=== PATIENT | male | born 1960 | race Two or more races ===

== ENCOUNTER → 2016-10-03 | Outpatient (CLI) | payer BC, OTHER ==
[2016-10-03 08:41] LABS: ALANINE AMINOTRANSFERASE 38 U/L (21-72); ALKALINE PHOSPHATASE 47 U/L (38-126); ANION GAP 10 (5-19); ASPARTATE AMINO TRANSFERASE 27 U/L (17-59); BILIRUBIN,DIRECT 0.3 mg/dL (0.0-0.4); BILIRUBIN,TOTAL 0.7 mg/dL (0.2-1.3); BLOOD UREA NITROGEN 21 mg/dL (7-20); CALCIUM 9.4 mg/dL (8.4-10.2); CARBON DIOXIDE 27 mmol/L (22-30); CHLORIDE 103 mmol/L (98-107); CHOLESTEROL 159.37 mg/dL (0-200); Direct HDL 38 mg/dL (>40); GLUCOSE 92 mg/dL (75-110); POTASSIUM 4.6 mmol/L (3.6-5.0); SODIUM 139.9 mmol/L (137-145); TOTAL PROTEIN 6.3 g/dL (6.3-8.2); TRIGLYCERIDES 121 mg/dL (<150)
[2016-10-03 08:52] LABS: DIRECT LDL 98 mg/dL (<100)
== END ==
LOC: OD 07:05
PROVIDERS: ATTEND Internal Medicine Cardiovascular Disease
DX: E78.2 Mixed hyperlipidemia (principal); I10 Essential (primary) hypertension
CPT/HCPCS: 36415; 80048; 80061; 80076

== ENCOUNTER → 2017-06-20 | Outpatient (CLI) | payer BC ==
[2017-06-20 09:08] LABS: ALANINE AMINOTRANSFERASE 49 U/L (21-72); ALKALINE PHOSPHATASE 45 U/L (38-126); ASPARTATE AMINO TRANSFERASE 29 U/L (17-59); BILIRUBIN,DIRECT 0.2 mg/dL (0.0-0.4); BILIRUBIN,TOTAL 0.6 mg/dL (0.2-1.3); CHOLESTEROL 200.35 mg/dL (0-200); TOTAL PROTEIN 6.3 g/dL (6.3-8.2); TRIGLYCERIDES 280 mg/dL (<150)
[2017-06-20 09:19] LABS: DIRECT LDL 116 mg/dL (<100)
== END ==
LOC: OD 07:43
PROVIDERS: ATTEND Nurse Practitioner Family
DX: E78.2 Mixed hyperlipidemia (principal); Z79.899 Other long term (current) drug therapy
CPT/HCPCS: 36415; 80061; 80076; 84403

== ENCOUNTER 2017-10-19 18:18 | Emergency (ER) | payer BC ==
[2017-10-19] MEDS ORDERED: NORMAL SALINE 1000 ML 1,000 ML IV ONE (18:38)
[2017-10-19] MEDS ORDERED: ACETAMINOPHEN 325 MG TABLET PO ONE (18:38)
[2017-10-19] MEDS ORDERED: ONDANSETRON 4 MG TAB.RAPDIS PO ONE (18:39)
--- NOTE | 2017-10-19 18:41 | ER Document Report ---
ED Medical Screen (RME) - General Chief Complaint: Fever Stated Complaint: PAIN,FEVER Time Seen by Provider: 10/19/17 18:26 Notes: RAPID MEDICAL EVALUATION DISCLOSURE I have seen this patient as part of a Rapid Medical Evaluation and, if applicable, placed any initially appropriate orders. The patient will be seen and fully evaluated, including a full history and physical exam, by a provider ( in Main ED or Fast Track) when a room becomes available. 57-year-old male here with complaints of generalized weakness fevers chills nausea palpitations and right inguinal and right maxillary pain. He went to the [facility] earlier today and underwent an ultrasound for his right inguinal pain but has not yet heard the results back. He has a follow-up appointment tomorrow however they decided to come today because he did not feel he could wait until tomorrow. He does not have any cough congestion runny nose vomiting diarrhea dysuria frequency. He is a poor historian and therefore there was some difficulty obtaining history. EXAM CTAB Moderately tachycardic TRAVEL OUTSIDE OF THE [place] IN LAST 30 DAYS: No - Related Data Allergies/Adverse Reactions: No Known Allergies Allergy (Unverified 09/20/11 22:05) Past Medical History - Social History Chew tobacco use (# tins/day): No Frequency of alcohol use: Rare Drug Abuse: None - Past Medical History Cardiac Medical History: Reports: Hx Hypercholesterolemia, Hx Hypertension Renal/ Medical History: Denies: Hx Peritoneal Dialysis Musculoskeltal Medical History: Reports Hx Arthritis Past Surgical History: Reports: Hx Tonsillectomy - Immunizations Hx Diphtheria, Pertussis, Tetanus Vaccination: Yes Physical Exam - Vital signs Vitals: Temp Pulse Resp BP Pulse Ox 100.2 F 132 H 18 152/82 H 95 10/19/17 18:24 10/19/17 18:24 10/19/17 18:24 10/19/17 18:24 10/19/17 18:24 Course - Vital Signs Vital signs: Temp Pulse Resp BP Pulse Ox 100.2 F 132 H 18 152/82 H 95 10/19/17 18:24 10/19/17 18:24 10/19/17 18:24 10/19/17 18:24 10/19/17 18:24 Doctor's Discharge - Discharge Referrals: HIRAL SMILEY MD [Primary Care Provider] - Follow up as needed
[2017-10-19 19:23] LABS: ABSOLUTE LYMPHOCYTES (AUTO) 0.9 10^3/uL (0.5-4.7); ABSOLUTE MONOCYTES (AUTO) 0.5 10^3/uL (0.1-1.4); ABSOLUTE NEUT (AUTO) 8.3 10^3/uL (1.7-8.2); BASOPHILS % (AUTO) 0.4 % (0-2); EOSINOPHILS % (AUTO) 0.2 % (0-6); HEMATOCRIT 42.8 % (37.9-51.0); HEMOGLOBIN 15.1 g/dL (13.5-17.0); LYMPHOCYTES % (AUTO) 9.4 % (13-45); MEAN CORPUSCULAR HEMOGLOBIN 30.6 pg (27.0-33.4); MEAN CORPUSCULAR HGB CONC 35.3 g/dL (32.0-36.0); MEAN CORPUSCULAR VOLUME 87 fl (80-97); MONOCYTES % (AUTO) 5.3 % (3-13); PLATELET COUNT 210 10^3/uL (150-450); RED BLOOD COUNT 4.93 10^6/uL (4.35-5.55); SEGMENTED NEUTROPHILS % (AUTO) 84.7 % (42-78); TOTAL CELLS COUNTED % (AUTO) 100 %; WHITE BLOOD COUNT 9.8 10^3/uL (4.0-10.5)
[2017-10-19 19:42] LABS: ALANINE AMINOTRANSFERASE 49 U/L (21-72); ALBUMIN 4.1 g/dL (3.5-5.0); ALKALINE PHOSPHATASE 50 U/L (38-126); ANION GAP 12 (5-19); ASPARTATE AMINO TRANSFERASE 37 U/L (17-59); BILIRUBIN,DIRECT 0.3 mg/dL (0.0-0.4); BILIRUBIN,TOTAL 0.7 mg/dL (0.2-1.3); BLOOD UREA NITROGEN 15 mg/dL (7-20); CALCIUM 9.5 mg/dL (8.4-10.2); CARBON DIOXIDE 26 mmol/L (22-30); CHLORIDE 103 mmol/L (98-107); GLUCOSE 152 mg/dL (75-110); POTASSIUM 4.2 mmol/L (3.6-5.0); SODIUM 141.3 mmol/L (137-145); TOTAL PROTEIN 6.9 g/dL (6.3-8.2)
[2017-10-19] MEDS ORDERED: HYDROMORPHONE HCL INJ/PF 2 MG/ML AMPULE IV ONE (20:54)
[2017-10-19] MEDS ORDERED: CEFTRIAXONE INJ 1000 MG VIAL IV ONE (20:54)
--- NOTE | 2017-10-19 21:01 | ER Document Report ---
ED General - General Chief Complaint: Fever Stated Complaint: PAIN,FEVER Time Seen by Provider: 10/19/17 18:26 Mode of Arrival: Ambulatory Information source: Patient Notes: 57-year-old male presents with complaints of fever body aches right sided suprapubic pain possible lymph node enlargement bilateral calf pain joint pain headache earache. Patient denies any similar episodes, admits ot redness of the testicular region normal bm this morning TRAVEL OUTSIDE OF THE [place] IN LAST 30 DAYS: No - HPI Onset: This morning Onset/Duration: Sudden, Persistent Quality of pain: Sharp Severity: Moderate Pain Level: 3 Associated symptoms: Body/muscle aches, Fever, Headache Exacerbated by: Denies Relieved by: Denies Similar symptoms previously: No Recently seen / treated by doctor: Yes - seen at [facility] this morning - Related Data Allergies/Adverse Reactions: No Known Allergies Allergy (Unverified 09/20/11 22:05) Past Medical History - Social History Smoking Status: Never Smoker Cigarette use (# per day): No Chew tobacco use (# tins/day): No Smoking Education Provided: No Frequency of alcohol use: Rare Drug Abuse: None Family History: Reviewed & Not Pertinent Patient has suicidal ideation: No Patient has homicidal ideation: No - Past Medical History Cardiac Medical History: Reports: Hx Hypercholesterolemia, Hx Hypertension Renal/ Medical History: Denies: Hx Peritoneal Dialysis Musculoskeletal Medical History: Reports Hx Arthritis Past Surgical History: Reports: Hx Tonsillectomy - Immunizations Hx Diphtheria, Pertussis, Tetanus Vaccination: Yes Review of Systems - Review of Systems Notes: REVIEW OF SYSTEMS: CONSTITUTIONAL : fever EENT: Denies eye, ear, throat, or mouth pain or symptoms. Denies nasal or sinus congestion or discharge. Denies throat, tongue, or mouth swelling or difficulty swallowing. CARDIOVASCULAR: Denies chest pain. Denies palpitations or racing or irregular heart beat. Denies ankle edema. RESPIRATORY: Denies cough, cold, or chest congestion. Denies shortness of breath, difficulty breathing, or wheezing. GASTROINTESTINAL: Denies abdominal pain or distention. Denies nausea, vomiting , or diarrhea. Denies blood in vomitus, stools, or per rectum. Denies black, tarry stools. Denies constipation. GENITOURINARY: Denies difficulty urinating, painful urination, burning, frequency, blood in urine, or discharge. MUSCULOSKELETAL: Denies back or neck pain or stiffness. Denies joint pain or swelling. SKIN: admits to redness of the skin HEMATOLOGIC : Denies easy bruising or bleeding. LYMPHATIC: admits to right groin lymph node enlargmenet NEUROLOGICAL: Denies confusion or altered mental status. Denies passing out or loss of consciousness. Denies dizziness or lightheadedness. Denies headache. Denies weakness or paralysis or loss of use of either side. Denies problems with gait or speech. Denies sensory loss, numbness, or tingling. Denies seizures. PSYCHIATRIC: Denies anxiety or stress. Denies depression, suicidal ideation, or homicidal ideation. ALL OTHER SYSTEMS REVIEWED AND NEGATIVE. Dictation was performed using [employer] voice recognition software PHYSICAL EXAMINATION: GENERAL: febrile ill appearing male HEAD: Atraumatic, normocephalic. EYES: Pupils equal round and reactive to light, extraocular movements intact, sclera anicteric, conjunctiva are normal. ENT: Nares patent, oropharynx clear without exudates. Moist mucous membranes. NECK: Normal range of motion, supple without lymphadenopathy LUNGS: Breath sounds clear to auscultation bilaterally and equal. No wheezes rales or rhonchi. HEART: Regular rate and rhythm without murmurs ABDOMEN: Soft, nontender, nondistended abdomen. No guarding, no rebound. No masses appreciated. testicles are bilaterally erythemetous but not tender, Musculoskeletal: Normal range of motion, no pitting or edema. No cyanosis. NEUROLOGICAL: Cranial nerves grossly intact. Normal speech, normal gait. Normal sensory, motor exams PSYCH: Normal mood, normal affect. SKIN: mild erythema Physical Exam - Vital signs Vitals: Temp Pulse Resp BP Pulse Ox 100.2 F 132 H 18 152/82 H 95 10/19/17 18:24 10/19/17 18:24 10/19/17 18:24 10/19/17 18:24 10/19/17 18:24 Course - Re-evaluation Re-evalutation: 10/19/17 23:02 dr molina consulted, ct was negative. 10/20/17 01:26 Ultrasound also noted no significant abnormality, patient overall looks well I did explain very strict return precautions explained that this appears to be viral nature is on the test is otherwise benign but given the patient was febrile with a white count I do want him to return immediately if there are any worsening symptoms After performing a Medical Screening Examination, I estimate there is LOW risk for ACUTE APPENDICITIS, BOWEL OBSTRUCTION, ACUTE CHOLECYSTITIS, PERFORATED DIVERTICULITIS, INCARCERATED HERNIA, PANCREATITIS, TESTICULAR TORSION or PERFORATED ULCER, thus I consider the discharge disposition reasonable. Also, there is no evidence or peritonitis, sepsis, or toxicity. I have reevaluated this patient multiple times and no significant life threatening changes are noted. The patient and I have discussed the diagnosis and risks, and we agree with discharging home with close follow-up with the understanding that symptoms and presentations can change. We also discussed returning to the Emergency Department immediately if new or worsening symptoms occur. We have discussed the symptoms which are most concerning (e.g., bloody stool, fever, changing or worsening pain, intractable vomiting - standard verbal up date) that necessitate immediate return. - Vital Signs Vital signs: Temp Pulse Resp BP Pulse Ox 99.4 F 132 H 10 L 121/76 94 10/19/17 20:50 10/19/17 18:24 10/19/17 21:30 10/19/17 21:30 10/19/17 21:30 - Laboratory Result Diagrams: 10/19/17 18:50 10/19/17 18:50 Laboratory results interpreted by me: 10/19/17 10/19/17 10/19/17 18:50 18:50 22:57 Seg Neutrophils % 84.7 H Lymphocytes % 9.4 L Absolute Neutrophils 8.3 H Glucose 152 H Urine Urobilinogen 4.0 H Discharge - Discharge Clinical Impression: Inguinodynia, right Condition: Stable Disposition: HOME, SELF-CARE Instructions: Abdominal Pain ([facility]) Additional Instructions: Return immediately if there are any other concerns Prescriptions: Metoclopramide HCl [Reglan 10 mg Tablet] 1 - 2 tab PO Q6 #25 tablet Oxycodone HCl/Acetaminophen [Percocet 5-325 mg Tablet] 1 - 2 tab PO Q4H PRN #15 tablet PRN Reason: Referrals: HIRAL SMILEY MD [EMER[facility]] - Follow up as needed
--- NOTE | 2017-10-19 23:01 | RADIOLOGY REPORT (SQ) ---
PROCEDURE: CT of the abdomen and pelvis with intravenous contrast HISTORY: suprapubic pain, fever Indication: Same as above Comparison: None . Technique: CT of the abdomen and pelvis was done with intravenous contrast. Images were obtained from the lung base to the level of the pubic symphysis in axial plane, followed by orthogonal sagittal and coronal reconstruction. Oral contrast was not given for the study. The patient was injected with radiographic contrast intravenously, without any documented immediate adverse reactions. This exam was performed according to our departmental dose-optimization program, which includes automated exposure control, adjustment of the mA and/or KV according to the patient's size and/or use of iterative reconstruction technique. FINDINGS: Images through the lung bases do not show any focal infiltrates or pleural effusions. The pancreas, spleen and the bilateral adrenal glands appear unremarkable. There is prior cholecystectomy. There is a subcentimeter benign cyst/hemangioma in the lateral segment of the liver The bilateral kidneys enhance with contrast in a normal fashion. Multiple benign cortical cysts are seen in the left kidney The urinary bladder is unremarkable . The bilateral ureters and the bilateral periureteral soft tissues and fat planes are unremarkable. The small bowel appears unremarkable, without any evidence of small bowel obstruction or bowel wall thickening. There is no CT evidence of acute appendicitis, pericecal inflammatory change or ileocecal mesenteric adenitis. The ileocecal junction appears unremarkable. There is no CT evidence of acute colonic diverticulitis or colitis or large bowel obstruction. The splenic and portal veins are of normal caliber, without any filling defects. There is no pathological lymphadenopathy in the retroperitoneum or in the pelvic region. There is no evidence of free fluid or free air in the abdomen or the pelvic region. There is no clinically significant abdominal aortic aneurysm. There is presence of small bilateral inguinal hernias The visualized lumbar spine shows underlying degenerative change . The paravertebral soft tissues are unremarkable. The remainder of the pelvic structures are unremarkable. IMPRESSION: There are no acute findings in the abdomen or the pelvis. Location of Interpretation: Teleradiology
--- NOTE | 2017-10-19 23:33 | PDOC CONSULTATION ---
Consultation Consult Date: 10/19/17 Attending physician:: ALLEN AREVALO Consult reason:: Right inguinal pain History of Present Illness Admission Date/PCP: CAREN CORDERO History of Present Illness: STEVENSON CLAY is a 57 year old male Who is originally from [place], possibly 10 years, who presents to the emergency department via ground rescue complaining persisting right inguinal pain. 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 Patient was seen at an outpatient acute care facility by [facility], underwent ultrasonography of the right inguinal area which is reportedly unremarkable. Patient was discharged home with arrangements to follow-up the following day. Because of persisting pain in the right inguinal area the patient was brought by ground rescue to [facility]. Patient underwent laboratory profile which is grossly unremarkable and a CT scan of the abdomen and pelvis without oral contrast which was also interpreted as normal. His heart rate and blood pressure as well as respiratory rate stabilized with IV fluids. Surgery was consulted for evaluation of the right inguinal area. Past Medical History Cardiac Medical History: Reports: Hyperlipidema, Hypertension Musculoskeltal Medical History: Reports: Arthritis Past Surgical History Past Surgical History: Reports: Tonsillectomy Social History Smoking Status: Never Smoker Hx Recreational Drug Use: No Hx Prescription Drug Abuse: No Family History Family History: Reviewed & Not Pertinent Parental Family History Reviewed: Yes Children Family History Reviewed: Yes Sibling(s) Family History Reviewed.: Yes Medication/Allergy Home Medications: Atenolol [Tenormin 50 Mg Tablet] 50 mg PO 09/20/11 Atorvastatin Calcium [Lipitor 10 Mg Tablet] 10 mg PO QHS 09/20/11 Clonazepam [Klonopin] 1 mg PO 09/20/11 Etanercept [Enbrel] 25 mg SQ 09/20/11 Tamsulosin HCl [Flomax 0.4 mg Cap.sr] 0.4 mg PO DAILY 09/20/11 Levofloxacin [Levaquin 500 mg Tablet] 500 mg PO DAILY #10 tablet 11/18/12 Oxycodone HCl/Acetaminophen [Percocet 10-325 Mg Tablet] 1 each PO Q6HP PRN #20 tablet 11/18/12 Allergies/Adverse Reactions: No Known Allergies Allergy (Unverified 09/20/11 22:05) Review of Systems Eyes: ABSENT: visual disturbances Ears: ABSENT: hearing changes Cardiovascular: ABSENT: chest pain, dyspnea on exertion, edema, orthropnea, palpitations Respiratory: PRESENT: as per HPI. ABSENT: cough, hemoptysis Physical Exam Vital Signs: Temp Pulse Resp BP Pulse Ox 99.4 F 132 H 10 L 121/76 94 10/19/17 20:50 10/19/17 18:24 10/19/17 21:30 10/19/17 21:30 10/19/17 21:30 Intake & Output 10/18/17 10/19/17 10/20/17 06:59 06:59 06:59 Weight 100 kg General appearance: PRESENT: no acute distress Head exam: PRESENT: other - Severely tanned from the face Eye exam: PRESENT: EOMI Mouth exam: PRESENT: dry mucosa Neck exam: PRESENT: full ROM Respiratory exam: PRESENT: clear to auscultation gunner Cardiovascular exam: PRESENT: RRR Pulses: PRESENT: normal carotid pulses, normal radial pulses GI/Abdominal exam: PRESENT: other - Abdomen rotund but no peritoneal signs or rigidity no Gentrourinary exam: PRESENT: other - Scrotum examined. Testicles are descended bilaterally. Inguinal canal was palpated and there is some tenderness at the external inguinal ring on the right side. There was some erythematous skin to the penis. No gold abscess cellulitis or drainage Extremities exam: PRESENT: full ROM Neurological exam: PRESENT: alert, oriented to person, oriented to place, oriented to time, oriented to situation Psychiatric exam: PRESENT: appropriate affect Skin exam: PRESENT: dry Results Laboratory Results: 10/19/17 18:50 10/19/17 18:50 10/19/17 10/19/17 10/19/17 18:50 18:50 18:50 WBC 9.8 RBC 4.93 Hgb 15.1 Hct 42.8 MCV 87 MCH 30.6 MCHC 35.3 RDW 13.0 Plt Count 210 Seg Neutrophils % 84.7 H Lymphocytes % 9.4 L Monocytes % 5.3 Eosinophils % 0.2 Basophils % 0.4 Absolute Neutrophils 8.3 H Absolute Lymphocytes 0.9 Absolute Monocytes 0.5 Absolute Eosinophils 0.0 Absolute Basophils 0.0 Sodium 141.3 Potassium 4.2 Chloride 103 Carbon Dioxide 26 Anion Gap 12 BUN 15 Creatinine 0.93 Est GFR ( Amer) > 60 Est GFR (Non-Af Amer) > 60 Glucose 152 H Lactic Acid 1.7 Calcium 9.5 Total Bilirubin 0.7 AST 37 ALT 49 Alkaline Phosphatase 50 Total Protein 6.9 Albumin 4.1 Impressions: Abdomen/Pelvis CT 10/19/17 20:54 IMPRESSION: There are no acute findings in the abdomen or the pelvis. Location of Interpretation: Teleradiology Assessment & Plan - Diagnosis (1) Inguinodynia, right Is this a current diagnosis for this admission?: Yes Plan: Impression: Right inguinodynia, possible spermatic cord inflammation: No clinical or radiographic evidence of right inguinal hernia; small cord lipoma on CT scan. Recommendations: 1. No clinical indication for surgical intervention; low suspicion for right inguinal pathology. Patient may have an element of epididymitis cord inflammation or some other neurologic issue. 2. Patient can be discharged home, follow-up with urology as needed. (2) Tachycardia Is this a current diagnosis for this admission?: Yes (3) Dehydration Is this a current diagnosis for this admission?: Yes (4) Hypertension Is this a current diagnosis for this admission?: Yes
[2017-10-20 00:42] LABS: APPEARANCE,URINE CLEAR; BILIRUBIN,URINE NEGATIVE (NEGATIVE); COLOR,URINE YELLOW; GLUCOSE, URINE NEGATIVE (NEGATIVE); KETONES,URINE NEGATIVE (NEGATIVE); LEUKOCYTE ESTERASE,URINE NEGATIVE (NEGATIVE); NITRITE,URINE NEGATIVE (NEGATIVE); PROTEIN,URINE NEGATIVE (NEGATIVE); URINE SPECIFIC GRAVITY 1.041
[2017-10-20] MEDS ORDERED: HYDROMORPHONE HCL INJ/PF 2 MG/ML AMPULE IV ONE (00:54)
--- NOTE | 2017-10-20 01:15 | RADIOLOGY REPORT (SQ) ---
Ultrasound scrotum and testicles on 10/20/2017 at 12:01 AM CLINICAL INDICATION: Testicular pain COMPARISON: CT from 10/19/2017 FINDINGS: Multiple sonographic images are obtained throughout the scrotum and testicles, both transverse and sagittal images are obtained. Bilateral testicles are homogeneous in echotexture without evidence of an intratesticular mass. Flow is demonstrated within both testicles without evidence of torsion or unilateral increased flow to suggest epididymoorchitis. Complex left epididymal cyst or spermatocele is noted. Small bilateral hydroceles are noted. Normal-appearing lymph nodes are noted within the bilateral groin. IMPRESSION: Small bilateral hydroceles, otherwise essentially unremarkable.
[2017-10-20 01:58] VITALS: BP 115/73
== END 2017-10-20 02:07 | disposition home or self-care (01) ==
LOC: ER 18:18
DX: R10.30 Lower abdominal pain, unspecified (principal); R59.0 Localized enlarged lymph nodes; R50.9 Fever, unspecified; M79.662 Pain in left lower leg; M79.661 Pain in right lower leg; M25.50 Pain in unspecified joint; R51 Headache; L53.9 Erythematous condition, unspecified; I10 Essential (primary) hypertension
CPT/HCPCS: 96376; 99284; 96361; 96375; 96365; 36415; 87040; 85025; 80053; 81001; 83605; 76870; 93976; 74177; S0119; J1170 ×2; J0696; J7030